=== PATIENT | female | born 1950 | race Caucasian/White ===

== ENCOUNTER 2021-01-16 10:27 | Day surgery (SDC) | payer MEDICARE, BC ==
[2021-01-16] MEDS ORDERED: Lidocaine 1% MPF 2 ML VIAL ONE (10:30)
[2021-01-16] MEDS ORDERED: PROPOFOL 40 ML ONE (11:17)
[2021-01-16] MEDS ORDERED: PROPOFOL 20 ML ONE (11:32)
== END 2021-01-16 12:55 | disposition home or self-care (01) ==
LOC: CSHSDC 10:27
PROVIDERS: ATTEND Internal Medicine Gastroenterology
PROC: 0DJD8ZZ Inspection of Lower Intestinal Tract, Via Natural or Artificial Opening Endoscopic (ICD-10-PCS; principal; 2021-01-16)
DX: Z12.11 Encounter for screening for malignant neoplasm of colon (principal); Z86.010 Personal history of colon polyps; K57.30 Diverticulosis of large intestine without perforation or abscess without bleeding; K64.9 Unspecified hemorrhoids
CPT/HCPCS: J2704